=== PATIENT | female | born 1985 | race Caucasian/White ===

== ENCOUNTER 2023-12-03 21:00 | Inpatient (IN) | payer MEDICAID, SELFPAY ==
[2023-12-03 21:02] VITALS: BP 143/105; PULSE 104; RESP 17; TEMP 36.7; O2SAT 98; BMI 30.5
--- NOTE | 2023-12-03 21:32 | EX.ED.SAOD ---
HPI History of Present Illness Chief Complaint: Substance Abuse Detail of Chief Complaint: Fentanyl use for the past 1 to 2 months daily Informant: patient Onset/Context/Timing Onset: Month(s) Context: Sudden Onset Timing: Continuous Quality: Patient relapsed after being drug-free for 3 years Location: Injects multiple sites single Current Severity: Mild Maximum Severity: Moderate Worsened by: Abstinence Relieved by: Use Associated Symptoms Associated Symptoms: Positive for diarrhea*, tremor, palpatations and no; Negative for vomiting*, fever*, rash*, seizure, change in mental status, trauma, sex for drugs*, suicidal ideation or homicidal ideation Narrative Narrative: Patient is a 38-year-old woman. She had been using for over 8 years. Went to rehab. She stopped using for 3 years. Boyfriend cheated on her and did other things so she resumed using. She states she uses fentanyl. She injects in her extremities upper and lower as well as feet. She denies fever, chills night sweats. Denies history of SPE. She does have history of hepatitis C. She is HIV negative. She denies headache, visual, ocular auditory symptoms. She denies shortness of breath. Does complain of palpitations. She intermittently complains of abdominal pain she has had diarrhea for the past day. She denies vomiting. Prior similar symptoms: Yes Recent Illness/Hospitalization: No PFSH PFSH Medical History Hepatitis C Use of nonprescription opiate drugs Home Medications ?Medication ?Instructions ?Recorded ?Last Taken ?Type buprenorphine HCl 8 mg sublingual 8 mg sublingual Q12H 12/03/23 Unknown History tablet cyclobenzaprine 10 mg tablet 20 mg PO DAILY 12/03/23 Unknown History divalproex 500 mg tablet,delayed 1,000 mg PO DAILY 12/03/23 Unknown History release (Depakote) fluoxetine 40 mg capsule (Prozac) 60 mg PO DAILY 12/03/23 Unknown History gabapentin 300 mg capsule 600 mg PO Q6H 12/03/23 Unknown History Allergy/AdvReac Type Severity Reaction Status Date / Time No Known Allergies Allergy Verified 12/03/23 21:04 Social History (Updated 12/03/23 @ 21:[address] Tomas Lopez MD) household members: none Smoking Status: Current every day smoker tobacco type: e-cigarettes substance use type: opiates ROS ROS ED Constitutional Constitutional ED: Denies chills, fever(s), subjective or sweats Eyes Eyes: Denies blurry vision, change in vision or diplopia ENT ENT ED: Denies ear pain, rhinorrhea or sore throat Cardiovascular Cardiovascular: Denies chest pain, palpitations or racing heartbeat Respiratory/Chest Respiratory/Chest: Denies cough, dyspnea or dyspnea on exertion Gastrointestinal Gastrointestinal: Reports abdominal pain and diarrhea; Denies constipation, melena or vomiting Genitourinary Genitourinary ED: Denies dysuria or urinary frequency Musculoskeletal Musculoskeletal: Denies back pain or neck pain Integumentary Reports rash; Denies abscess or Abrasions Neurologic Neurologic: Denies headache(s) or paresthesias Endocrine Endocrinology: Denies cold intolerance or heat intolerance Hematologic/Lymphatic Hematologic/Lymphatic: Denies easy bleeding or easy bruising Allergic/Immunologic Allergic/Immunologic ED: Denies mouth swelling or tongue swelling EXAM Physical Exam Const Vital Signs: 12/03/23 21:02 12/03/23 22:02 12/03/23 22:11 Temperature 98.1 F 96.9 F L Temperature Source Temporal Pulse Rate 104 H 88 88 Respiratory Rate 17 18 16 Blood Pressure 143/105 H 126/103 H 126/103 H Blood Pressure Mean 117 110 110 Pulse Ox 98 96 92 Oxygen Delivery Method Room Air Room Air Positive well nourished, well developed and unkempt General Appearance ED: unkempt and well developed; Negative for pallor HEENT Reports moist mucous membranes HEENT Narrative: Nares patent. Posterior pharynx is normal. atraumatic; Negative for tenderness Eyes PERRL and EOMs intact bilaterally General Eye ED: Negative for pale conjunctiva or scleral icterus Neck no lymphadenopathy, supple and no JVD Lymph Lymphatic: no lymphadenopathy noted and lymphadenopathy Chest Wall inspection of chest normal and palpation of chest normal Resp normal respiratory effort and clear to auscultation bilaterally Cardio regular rhythm, S1 normal heart sound, S2 normal heart sound and no murmurs Rate: tachycardic GI soft to palpation, non-tender, non-distended and no masses Back/Spine no CVA tenderness Extremity Extremity Narrative: Track vaca upper and lower extremity without evidence infection. There is also bruising since she skin pops. Neuro oriented x3 and CN's II-XII intact bilaterally Joshua Coma Scale: document GCS findings Spontaneous Obeys Commands Oriented 15 Sensorium / Orientation: alert Psych Appearance: unkempt Mood & Affect: depressed Skin General Skin Exam: scars; Negative for jaundice or pallor MDM MDM MDM Narrative Medical decision making narrative: Nurses attempted to get blood. Will order appropriate test. Addiction order set for admission for opiate abuse. Lab Data Attestation: I reviewed the patient's lab results. Lab results narrative: Talk screen is positive for amphetamines, ecstasy, benzodiazepines and cocaine. Fentanyl does not show up as an opiate on talk screen. Labs: Laboratory Results - last 24 hr 12/03/23 21:36 Urine Opiates Screen NEGATIVE Urine Methadone Screen NEGATIVE Ur Barbiturates Screen NEGATIVE Ur Phencyclidine Scrn NEGATIVE Ur Amphetamines Screen POSITIVE H MDMA (Ecstasy) Screen POSITIVE H U Benzodiazepines Scrn POSITIVE H Urine Cocaine Screen POSITIVE H U Cannabinoids Screen NEGATIVE Ur Drug Screen Comment Management Discussion w/another healthcare provider: Hospitalist Discharge Plan Triage Chief Complaint: Substance Abuse ED Provider: Tomas Lopez Dx/Rx/DC Orders Clinical Impression: Opiate abuse, continuous, Opiate dependence, Ecstasy abuse, Cocaine use, Moderate benzodiazepine use disorder Prescriptions: No Action fluoxetine [Prozac] 40 mg capsule 60 mg PO DAILY divalproex [Depakote] 500 mg tablet,delayed release (DR/EC) 1,000 mg PO DAILY gabapentin 300 mg capsule 600 mg PO Q6H buprenorphine HCl 8 mg tablet, sublingual 8 mg sublingual Q12H cyclobenzaprine 10 mg tablet 20 mg PO DAILY Print Language: Lithuanian Disposition Disposition: Acute Care Hospital [facility]
[2023-12-03 21:53] LABS: Vista UDS pH Range 6
[2023-12-03 21:54] LABS: Amphetamine Urine VISTA POSITIVE (<1000 ng/mL); Barbiturate Urine VISTA NEGATIVE (< 200 ng/mL); Benzodiazepine Urine VISTA POSITIVE (< 200 ng/mL); Cocaine Urine VISTA POSITIVE (< 300 ng/mL); Ecstacy Urine VISTA POSITIVE (< 500 ng/mL); Methadone Urine VISTA NEGATIVE (< 300 ng/mL); PCP Urine VISTA NEGATIVE (< 25 ng/mL); THC Urine VISTA NEGATIVE (< 50 ng/mL)
[2023-12-03 22:02] VITALS: BP 126/103; PULSE 88; RESP 18; O2SAT 96
[2023-12-03 22:11] VITALS: BP 126/103; PULSE 88; RESP 16; TEMP 36.1; O2SAT 92
--- NOTE | 2023-12-03 22:21 | PCM.HP.STD ---
[facility] - General General Date of Admission: 12/03/23 Date of Service: 12/03/23 Chief Complaint: Wants Help with Fentanyl Detox. HPI Narrative ALEX NINO, is a 38 F with a past medical history of obesity; with BMI of 30.5 this admission, tobacco abuse, chronic ongoing Fentanyl abuse with IVDA and skin popping (since ~2015); still on SL Buprenex BID in spite of alleged ~3 years of sobriety due to recent relapse, Chronic Hepatitis C, history of seizures; on Divalproex and Gabapentin and depression who presents to [facility] ER complaining she wants help with Fentanyl detox. Ms. Nino reports her symptoms began 1-2 months ago after she found out her boyfriend was unfaithful to her with her best friend causing her to go on a binge of Fentanyl/Polysubstance abuse since that time literally throwing her life into a tailspin as she tries to rebuild her life without them. When asked to quantify how much she uses a day she just says a lot with her last use a few hours ago. She admits to loose stools and nausea but she denies associated fever, chills vomiting, recent travel, recent known sick contacts, recent antibiotics or other recent illness. She claims she is HIV negative. In the ER her UDS this admission was positive for Amphetamines, MDMA, Benzodiazepines and Cocaine indicative of Polysubstance Abuse and she was then diagnosed with acute Fentanyl/ Polysubstance withdrawal in the setting of chronic Fentanyl/Polysubstance abuse with IVDA complicated by uncontrolled depression attributed to her boyfriend's and best friends betrayal and she was then admitted to the general medical floor for ongoing care for a stay that is expected to extend beyond 2 midnights. [facility] Medical History Hepatitis C Use of nonprescription opiate drugs Home Medications ?Medication ?Instructions ?Recorded ?Last Taken ?Type buprenorphine HCl 8 mg sublingual 8 mg sublingual Q12H 12/03/23 Unknown History tablet cyclobenzaprine 10 mg tablet 20 mg PO DAILY 12/03/23 Unknown History divalproex 500 mg tablet,delayed 1,000 mg PO DAILY 12/03/23 Unknown History release (Depakote) fluoxetine 40 mg capsule (Prozac) 60 mg PO DAILY 12/03/23 Unknown History gabapentin 300 mg capsule 600 mg PO Q6H 12/03/23 Unknown History Allergy/AdvReac Type Severity Reaction Status Date / Time No Known Allergies Allergy Verified 12/03/23 21:04 Social History household members: none Smoking Status: Current every day smoker tobacco type: e-cigarettes substance use type: opiates ROS ROS Narrative Review of systems: General: Patient denies fever or chills. HENT: Denies headache, denies stuffy nose, denies sore throat EYES: Denies changes in vision or discharge from eyes. Resp: Denies cough, denies shortness of breath Cardiac: Denies chest pain, palpitations or heart racing. GI: Patient admits to abdominal pain and diarrhea but she denies nausea or vomiting. : Denies changes in urination Extremity: Denies swelling Musculoskeletal: Feels somewhat generally weak and unwell but she denies arthralgias or myalgias. Neuro: Patient denies headache, paresthesias or focal neurologic deficits. Heme: Denies any bleeding or bruising Skin: Patient has evidence of track vaca in both upper and lower extremities along with evidence of skin popping and very poor venous access. Psychiatric: Patient is tearful and anxious when speaking about her ex-boyfriend who cheated on her with her best friend causing this patient to struggle to control her already significant addiction issues. Endocrine: No polyuria, polydipsia or polyphagia. The rest of the 14 point ROS was negative except for positives in HPI. Vital Signs Vital Signs Vital Signs: 12/03/23 21:02 12/03/23 22:02 12/03/23 22:11 Temperature 98.1 F 96.9 F L Temperature Source Temporal Pulse Rate 104 H 88 88 Respiratory Rate 17 18 16 Blood Pressure 143/105 H 126/103 H 126/103 H Blood Pressure Mean 117 110 110 Pulse Ox 98 96 92 Oxygen Delivery Method Room Air Room Air Weight Weight: 219 lb Body Mass Index (BMI) 30.5 Physical Exam Const alert, oriented x3, average body habitus and healthy appearing Constitutional Narrative: Mild distress noted with patient disheveled and unkempt. General Appearance: cooperative HEENT normocephalic, head/scalp atraumatic, hearing grossly normal bilaterally and moist oral mucous membranes Eyes PERRL and EOMs intact bilaterally Neck no lymphadenopathy and supple Resp normal respiratory effort, no retractions, no use of accessory muscles and clear to auscultation bilaterally Cardio regular rate and regular rhythm GI normal to inspection, nondistended, normoactive bowel sounds, soft to palpation, non-tender and non-distended Extremity full ROM Extremity Narrative: Patient has track vaca in her upper and lower extremities along with evidence of skin popping with corresponding bruising without evidence of acute infection. Skin Skin Narrative: Patient has no evidence of jaundice or rash but she has track vaca in her upper and lower extremities along with evidence of skin popping with corresponding bruising without evidence of acute infection. Patient is also tattooed over her chest wall and both upper extremities. Neuro oriented x3, CN's II-XII intact bilaterally, moves all extremities and no focal motor deficits Sensorium / Orientation: awake, alert, oriented to person, oriented to place and oriented to time Speech: speech normal Psych Psych Narrative: Patient is tearful, anxious and depressed when asked about her ex-boyfriend and her best friend. She denies suicidal or homicidal ideation but she is still in the process of deeply grieving for the loss of both of these relationships. Mood & Affect: depressed and anxious Results Medical Records Data Attestation: I reviewed the patient's medical records Lab / Micro Data Attestation: I reviewed the patient's lab results. 12/03/23 22:03 Labs: Laboratory Results - last 24 hr 12/03/23 21:36: Urine Opiates Screen NEGATIVE, Urine Methadone Screen NEGATIVE, Ur Barbiturates Screen NEGATIVE, Ur Phencyclidine Scrn NEGATIVE, Ur Amphetamines Screen POSITIVE H, MDMA (Ecstasy) Screen POSITIVE H, U Benzodiazepines Scrn POSITIVE H, Urine Cocaine Screen POSITIVE H, U Cannabinoids Screen NEGATIVE, Ur Drug Screen Comment Assessment & Plan Assessment/Plan (1) Polysubstance abuse: (2) Opiate dependence: QUALIFIERS: Substance use status: in withdrawal Qualified Code(s): F11.23 - Opioid dependence with withdrawal (3) Opiate abuse, continuous: (4) Ecstasy abuse: (5) Cocaine use: (6) Moderate benzodiazepine use disorder: (7) Hepatitis C: QUALIFIERS: Hepatic coma status: without hepatic coma Viral hepatitis chronicity: unspecified Qualified Code(s): B19.20 - Unspecified viral hepatitis C without hepatic coma (8) Depression with anxiety: (9) Hypokalemia: PLAN: Plan 1. Acute Fentanyl/Polysubstance withdrawal in the setting of chronic Fentanyl/Polysubstance Abuse with IVDA and skin popping since ~2016 with her UDS this admission was positive for Amphetamines, MDMA, Benzodiazepines and Cocaine - Admit to general medical floor for medical stabilization under the opiate detoxification protocol. Opiate cessation was strongly encouraged. Loose stools are typical of opiate withdrawal but we will check stool studies to be sure. Finally, we will consult Case Management and addiction counselor to see this patient on-rounds in the AM for further recommendations regarding helping this patient formulate and execute a plan to regain her sobriety with help appreciated in advance. 2. Uncontrolled Depression with anxiety for the past ~1-2 months triggered by her boyfriend's infidelities complicating #1 - Resume Prozac and give prn oral Vistaril for breakthrough symptoms. Check TSH. 3. Tobacco abuse compounding #1 & #2 - Tobacco cessation will be strongly encouraged with Nicotine patch offered to control cravings. 4. Hypokalemia of 3.3 mmol/L present on admission adding to the complexity of #1 - #3 - Give supplemental KCl and then recheck level in a.m. to ensure improvement. 5. Chronic Hepatitis C adding - Noted. Patient not jaundiced or showing any signs of acute liver decompensation. 6. Obesity; with BMI of 30.5 this admission - Weight loss will be recommended. 7. History of seizures; on Divalproex and Gabapentin - Continue home regimen as previous. Give IV Ativan prn for breakthrough seizure activity. 8. DVT prophylaxis - Lovenox 40 mg sq daily. Total time: Approximately 75 minutes. Charges/Coding Visit Charges Inpatient E&M: 06092 Init Hosp L3
[2023-12-03 22:24] LABS: Alcohol, Blood (Medical)-Serum < 3.0 mg/dL
[2023-12-03 22:30] LABS: ALB/GLOB Ratio 1.1 RATIO (0.9-2.4); AST(SGOT) 13 U/L (15-37); Alanine Aminotransfer ALT/SGPT 24 U/L (13-56); Albumin, Serum 3.6 g/dL (3.2-5.0); Alkaline Phosphatase 78 U/L (45-117); Anion Gap 7 (5-15); BUN 13 mg/dL (7-18); BUN/Creat Ratio 10.7 RATIO (10-20); Calcium,Total 8.8 mg/dL (8.5-10.1); Chloride 106 mmol/L (98-107); Creatinine, Serum 1.21 mg/dL (0.55-1.02); EST Glomerular Filtration Rate 52 mL/min (>60); Est Glom Filt Rate - Afr Amer 63 mL/min (>60); Estimated Creatinine Clearance 80.21 ml/min; Globulin 3.4 g/dL (2.2-4.2); Glucose 126 mg/dL (74-106); Potassium 3.3 mmol/L (3.5-5.1); Sodium Level 139 mmol/L (136-145)
[2023-12-03 23:17] VITALS: BMI 30.7
[2023-12-03 23:36] VITALS: BP 133/94; PULSE 77; RESP 16; TEMP 36.4; O2SAT 98
[2023-12-03 23:39] LABS: Valproic Acid (Depakene) Level < 3 ug/mL (50-100)
[2023-12-03] MEDS: Potassium Chloride Oral Tablet 20 MEQ 60 MEQ PO (23:46)
[2023-12-04] VITALS (8 sets, daily range): BP systolic 101–108; BP diastolic 71–81; PULSE 64–83; RESP 10–16; TEMP 36.2–36.7; O2SAT 85–99; BMI 30.8
[2023-12-04] MEDS: Gabapentin 600 MG Tablet PO ×3 (00:04→12:27)
[2023-12-04] MEDS: Acetaminophen 325 MG Tablet 650 MG PO ×3 (00:17→16:43)
[2023-12-04] MEDS: traZODone 100 MG Tablet PO (00:18)
[2023-12-04] MEDS: KCL 20MEQ in 0.9% NS 20 MEQ/1,000 ML IV.SOLN. 125 MEQ IV ×2 (01:08→07:50)
[2023-12-04] MEDS: Ondansetron 8 MG Tablet PO (06:39)
[2023-12-04] MEDS: 0.9% Saline Lock 10 ML Syringe IV (06:39)
[2023-12-04 07:06] LABS: Absolute Lymphocyte Count 3.09 X10^3/uL (0.83-4.51); Absolute Neutrophil Count 2.4 X10^3/uL (2.0-7.7); Basophil# 0.04 X10^3/uL; Basophil% 0.7 % (0-1); Eosinophil# 0.14 X10^3/uL; Eosinophils% 2.3 % (0-5); Hematocrit 35.1 % (37-47); Hemoglobin 10.7 g/dL (12.0-15.0); Lymphocyte # 3.09 X10^3/ul (0.83-4.51); Lymphocyte % 50.7 % (19-41); Mean Corp Hgb Conc 30.5 g/dL (32-36); Mean Corpuscular Hgb 26.1 pg (27.0-32.0); Mean Corpuscular Volume 85.6 fL (81-99); Monocyte# 0.42 X10^3/uL; Monocyte% 6.9 % (0-10); NRBC Flagged by Analyzer 0 % (0-5); Neutrophil % 39.2 % (47-70); Platelet Count 267 K/mm3 (150-450); RBC Distribution Width CV 14.9 % (11.6-14.6); RBC Distribution Width SD 46.9 fl (35.1-43.9); White Blood Count 6.1 K/mm3 (4.4-11.0)
[2023-12-04] MEDS: FLUoxetine 20 MG Capsule 60 MG PO (07:58)
[2023-12-04] MEDS: Enoxaparin 40 MG/0.4 ML Syringe SC (07:58)
[2023-12-04] MEDS: Divalproex Sodium 250 MG Tablet 1000 MG PO (07:58)
[2023-12-04 08:28] LABS: AST(SGOT) 21 U/L (15-37); Alanine Aminotransfer ALT/SGPT 22 U/L (13-56); Albumin, Serum 3.1 g/dL (3.2-5.0); Alkaline Phosphatase 73 U/L (45-117); Anion Gap 8 (5-15); BUN 12 mg/dL (7-18); BUN/Creat Ratio 12.3 RATIO (10-20); Calcium,Total 8.7 mg/dL (8.5-10.1); Chloride 111 mmol/L (98-107); Creatinine, Serum 0.98 mg/dL (0.55-1.02); EST Glomerular Filtration Rate 67 mL/min (>60); Est Glom Filt Rate - Afr Amer 81 mL/min (>60); Estimated Creatinine Clearance 99.26 ml/min; Globulin 3.2 g/dL (2.2-4.2); Glucose 119 mg/dL (74-106); Magnesium 1.9 mg/dL (1.6-2.6); Phosphorus 3.1 mg/dL (2.5-4.9); Potassium 4.3 mmol/L (3.5-5.1); Protein, Total 6.3 g/dL (6.4-8.2); Sodium Level 141 mmol/L (136-145); Thyroid Stim Hormone (TSH) 8.19 uIU/mL (0.358-3.74)
--- NOTE | 2023-12-04 10:15 | PCM.PN.HOSP ---
Subjective Subjective COWS score of 3 this morning Objective Data Objective Data Vital Signs: Vital Signs Temp Pulse Resp BP Pulse Ox O2 Del Method 98.0 F 70 16 101/78 93 Room Air 12/04/23 07:42 12/04/23 07:42 12/04/23 07:42 12/04/23 07:42 12/04/23 07:42 12/04/23 07:42 Oxygen Delivery Method Room Air Weight: 219 lb 15.988 oz Body Mass Index (BMI) 30.8 Intake & Output: Intake and Output for Last 24 Hours 12/03/23 12/04/23 12/05/23 03:59 03:59 03:59 Intake Total 1137.5 / 1137.5 Balance 1137.5 / 1137.5 Lab / Micro Data 12/04/23 06:40 12/04/23 06:40 Labs: Laboratory Results - last 24 hr 12/03/23 21:36: Urine Opiates Screen NEGATIVE, Urine Methadone Screen NEGATIVE, Ur Barbiturates Screen NEGATIVE, Ur Phencyclidine Scrn NEGATIVE, Ur Amphetamines Screen POSITIVE H, MDMA (Ecstasy) Screen POSITIVE H, U Benzodiazepines Scrn POSITIVE H, Urine Cocaine Screen POSITIVE H, U Cannabinoids Screen NEGATIVE, Ur Drug Screen Comment 12/03/23 22:03: Sodium 139, Potassium 3.3 L, Chloride 106, Carbon Dioxide 26.0, Anion Gap 7, BUN 13, Creatinine 1.21 H, Estim Creat Clear Calc 80.21, Est GFR (MDRD) Af Amer 63, Est GFR (MDRD) Non-Af 52 L, BUN/Creatinine Ratio 10.7, Glucose 126 H, Calcium 8.8, Total Bilirubin 0.30, AST 13 L, ALT 24, Alkaline Phosphatase 78, Total Protein 7.0, Albumin 3.6, Globulin 3.4, Albumin/Globulin Ratio 1.1, Valproic Acid < 3 L, Ethyl Alcohol < 3.0 12/04/23 06:40: WBC 6.1, RBC 4.10 L, Hgb 10.7 L, Hct 35.1 L, MCV 85.6, MCH 26.1 L, MCHC 30.5 L, RDW Std Deviation 46.9 H, RDW Coeff of Consuelo 14.9 H, Plt Count 267, MPV 11.0, Immature Gran % (Auto) 0.200, Neut % (Auto) 39.2 L, Lymph % (Auto) 50.7 H, [place] % (Auto) 6.9, Eos % (Auto) 2.3, Baso % (Auto) 0.7, Absolute Neuts (auto) 2.4, Absolute Lymphs (auto) 3.09, Nucleated RBC % 0, Sodium 141, Potassium 4.3, Chloride 111 H, Carbon Dioxide 22.0, Anion Gap 8, BUN 12, Creatinine 0.98, Estim Creat Clear Calc 99.26, Est GFR (MDRD) Af Amer 81, Est GFR (MDRD) Non-Af 67, BUN/Creatinine Ratio 12.3, Glucose 119 H, Calcium 8.7, Phosphorus 3.1, Magnesium 1.9, Total Bilirubin 0.30, AST 21, ALT 22, Alkaline Phosphatase 73, Total Protein 6.3 L, Albumin 3.1 L, Globulin 3.2, Albumin/Globulin Ratio 1.0, TSH 8.19 H Physical Exam Narrative General: Alert, Oriented x3, Cooperative, No apparent distress HEENT: Atraumatic, PERRLA, EOMI, Normocephalic Oral: Moist Mucosa Neck: Supple, No JVD Lungs: Clear to auscultation, Normal air movement, No rhonchi, No wheeze, No rales Cardiovascular: Regular rate, Regular Rhythm, Normal S1, Normal S2, No murmurs Abdomen: Soft, Non Tender, Non-Distended, No Hepato-splenomegaly Extremities: No edema, Capillary Refill Less than 3 Seconds Skin: Track vaca with no signs of infection Musculoskeletal: No Tenderness to Palpation of Joints or Extremities Neurological: No focal neurological deficits, Motor Exam 5/5 strength throughout, Sensory exam intact to light touch and pain Psych/Mental Status: Anxious Assessment & Plan Assessment/Plan (1) Polysubstance abuse: (2) Opiate dependence: QUALIFIERS: Substance use status: in withdrawal Qualified Code(s): F11.23 - Opioid dependence with withdrawal (3) Opiate abuse, continuous: PLAN: Plan 1. Acute opiate withdrawal/polysubstance abuse/anxiety/depression/chronic hepatitis C/tobacco abuse ? She had been clean for 3 years and then her boyfriend cheated on her with her best friend ? Requesting help with detox ? Continue with the opiate withdrawal protocol ? Will have her follow-up with 180 to establish discharge planning ? Continue with her home mental health medications ? Continue with the nicotine patch 2. Seizure disorder ? Stable ? Continue with her home Depakote DVT: Ambulation Charges/Coding Visit Charges Inpatient E&M: 72242 Subs Hosp L2
--- NOTE | 2023-12-04 14:53 | NUR.TO.PHY ---
Dr Martinez notified of o2 saturation 85% on RA. Current O2 sat 95% on 2L NC. Response was OK.
--- NOTE | 2023-12-04 16:17 | CPS ---
told by Dr. Hewitt to place patient on cpap due to CO2 of 51. Went to patient room to place the cpap on her and she is wide awake eating her dinner. Cpap is ready in standby mode in the room.Settings are a cpap of 7 and fio2 of 24%. Nursing aware
[2023-12-04 16:22] LABS: Allen Test Positive; Base Excess -1 mmol/L (-2 to +2); Bicarbonate 25.3 mmol/L (22-26); Blood Gas Specimen Type ART; Mode Not entered; O2 Delivery Device Cannula; PO2 97 mmHG (75-100); SITE R Radial; SO2 97 % (95-99); Total Carbon Dioxide 27 mmol/L; pCO2 51.5 mmHg (35-45)
[2023-12-04] MEDS: Methocarbamol 750 MG Tablet PO (16:43)
[2023-12-04] MEDS: hydrOXYzine PAM 25 MG Capsule 50 MG PO (16:43)
[2023-12-05 02:00] VITALS: BP 118/76; PULSE 89; RESP 16; TEMP 36.7; O2SAT 96
[2023-12-05] MEDS: Gabapentin 600 MG Tablet PO (05:47)
[2023-12-05 08:22] VITALS: BP 100/72; PULSE 79; RESP 14; TEMP 36.7; O2SAT 95
[2023-12-05] MEDS: FLUoxetine 20 MG Capsule 60 MG PO (08:28)
[2023-12-05] MEDS: Divalproex Sodium 250 MG Tablet 1000 MG PO (08:28)
--- NOTE | 2023-12-05 09:40 | PCM.PN.HOSP ---
Subjective Subjective No issues overnight, Cina score of 0 Objective Data Objective Data Vital Signs: Vital Signs Temp Pulse Resp BP Pulse Ox O2 Del Method O2 Flow Rate 98.1 F 79 14 100/72 95 Room Air 2 12/05/23 08:22 12/05/23 08:22 12/05/23 08:22 12/05/23 08:22 12/05/23 08:22 12/05/23 08:22 12/04/23 14:42 FiO2 21 12/04/23 19:55 Oxygen Flow Rate (L/min) 2 Oxygen Delivery Method Room Air Weight: 219 lb 15.988 oz Body Mass Index (BMI) 30.8 Intake & Output: Intake and Output for Last 24 Hours 12/04/23 12/05/23 12/06/23 03:59 03:59 03:59 Intake Total 2277.08 / 2277.08 150 / 150 Balance 2277.08 / 2277.08 150 / 150 Lab / Micro Data 12/04/23 06:40 12/04/23 06:40 ABG Data ABG results: ABG 12/04/23 16:17 Specimen Type ART Sample Site R Radial pH 7.30 L Bicarbonate Actual 25.3 Total CO2 27 Base Excess -1 O2 Saturation 97 O2 % 2.0 ABG pCO2 51.5 H ABG pO2 97 Johnny Test Positive O2 Delivery Device Cannula Vent Mode Not entered Physical Exam Narrative General: Resting comfortably, Oriented x3, Cooperative, No apparent distress HEENT: Atraumatic, PERRLA, EOMI, Normocephalic Oral: Moist Mucosa Neck: Supple, No JVD Lungs: Clear to auscultation, Normal air movement, No rhonchi, No wheeze, No rales Cardiovascular: Regular rate, Regular Rhythm, Normal S1, Normal S2, No murmurs Abdomen: Soft, Non Tender, Non-Distended, No Hepato-splenomegaly Extremities: No edema, Capillary Refill Less than 3 Seconds Skin: Track vaca with no signs of infection Musculoskeletal: No Tenderness to Palpation of Joints or Extremities Neurological: No focal neurological deficits, Motor Exam 5/5 strength throughout, Sensory exam intact to light touch and pain Psych/Mental Status: Anxious Assessment & Plan Assessment/Plan (1) Polysubstance abuse: (2) Opiate dependence: QUALIFIERS: Substance use status: in withdrawal Qualified Code(s): F11.23 - Opioid dependence with withdrawal (3) Opiate abuse, continuous: PLAN: Plan 1. Acute opiate withdrawal/polysubstance abuse/anxiety/depression/chronic hepatitis C/tobacco abuse ? She had been clean for 3 years and then her boyfriend cheated on her with her best friend ? Requesting help with detox ? Continue with the opiate withdrawal protocol ? Will have her follow-up with 180 to establish discharge planning ? Continue with her home mental health medications ? Continue with the nicotine patch 2. Seizure disorder ? Stable ? Continue with her home Depakote 3. Should be placed on oxygen yesterday and I observed her breathing while sleeping ABG demonstrates respiratory acidosis she likely has a component of sleep apnea. She wore CPAP overnight and did well. This will need to be followed up on as an outpatient DVT: Ambulation Charges/Coding Visit Charges Inpatient E&M: 20910 Subs Hosp L2
[2023-12-05 10:44] VITALS: O2SAT 95
[2023-12-05] MEDS: Gabapentin 400 MG Capsule PO ×2 (11:47→17:47)
--- NOTE | 2023-12-05 12:42 | ADDICTION ---
Pt was met with for [facility] assessment and to complete AUDIT, DUPERCYT, ASAM, [place], and DC Plan. Pt admits she is not interested in a residential or inpatient tx center and she plans to follow up with her current doctor in [place]. Pt states she is receiving mental health and MAT services w/Rx daily Buprenorphine from Dr. Whitehead and she plans to follow through with her OP appt. this week. Pt states she plans to discharge to her parents home in [place] and her parents will transport her home [facility].
[2023-12-05] MEDS: Acetaminophen 325 MG Tablet 650 MG PO (17:50)
[2023-12-05 21:00] VITALS: BP 119/89; PULSE 77; RESP 16; TEMP 36.7; O2SAT 94
[2023-12-06 03:00] VITALS: BP 127/92; PULSE 74; RESP 16; TEMP 36.7; O2SAT 95
[2023-12-06] MEDS: Gabapentin 400 MG Capsule PO ×3 (05:12→17:27)
[2023-12-06 06:00] VITALS: BMI 31.2
[2023-12-06 09:05] VITALS: BP 124/86; PULSE 85; RESP 16; TEMP 36.9; O2SAT 97
[2023-12-06] MEDS: Ondansetron 8 MG Tablet PO (09:14)
[2023-12-06] MEDS: FLUoxetine 20 MG Capsule 60 MG PO (09:15)
[2023-12-06] MEDS: Divalproex Sodium 250 MG Tablet 1000 MG PO (09:15)
[2023-12-06] MEDS: Dicyclomine 10 MG Capsule 20 MG PO ×2 (09:15→17:27)
[2023-12-06] MEDS: Buprenorphine HCl 2 MG TAB.SUBL SL ×2 (11:16→22:02)
[2023-12-06] MEDS: Methocarbamol 750 MG Tablet PO ×2 (11:16→17:27)
--- NOTE | 2023-12-06 12:37 | PN.HOSP_ITS ---
Reason for Visit Reason for Visit: Diagnoses Unspecified viral hepatitis C without hepatic coma (12/03/23) Hypokalemia (12/03/23) Opioid abuse, uncomplicated (12/03/23) Opioid dependence with withdrawal (12/03/23) Sedative, hypnotic or anxiolytic dependence, uncomplicated (12/03/23) Cocaine use, unspecified, uncomplicated (12/03/23) Hallucinogen abuse, uncomplicated (12/03/23) Other psychoactive substance abuse, uncomplicated (12/03/23) Other specified anxiety disorders (12/03/23) Subjective Subjective Saw patient at bedside this morning. Patient was laying comfortably in bed, in no acute distress. She reported feeling like crap this morning, similar to previous days. She felt tired and fatigued and like she was continue to have opiate withdrawal symptoms. She notably had not triggered the opiate withdrawal scoring to this point and not received any as needed doses of Subutex. She otherwise denied any acute concerns. Objective Data Objective Data Vital Signs: Vital Signs Temp Pulse Resp BP Pulse Ox O2 Del Method O2 Flow Rate 98.4 F 85 16 124/86 H 97 Nasal Cannula 2 12/06/23 09:05 12/06/23 09:05 12/06/23 09:05 12/06/23 09:05 12/06/23 09:05 12/06/23 09:05 12/04/23 14:42 FiO2 21 12/04/23 19:55 Oxygen Flow Rate (L/min) 2 Oxygen Delivery Method Nasal Cannula Weight: 101.2 kg Body Mass Index (BMI) 31.2 Intake & Output: Intake and Output for Last 24 Hours 12/04/23 12/05/23 12/06/23 23:59 23:59 23:59 Intake Total 2076.7. 720 / 970 450 / 450 Balance 2076.7.08 720 / 970 450 / 450 Lab / Micro Data 12/04/23 06:40 12/04/23 06:40 Physical Exam Const alert, oriented x3 and no apparent distress Constitutional Narrative: Middle-age female, obese, fatigued appearing, otherwise laying comfortably in bed, conversing normally, in no acute distress. General Appearance: cooperative and comfortable HEENT normocephalic, head/scalp atraumatic, hearing grossly normal bilaterally, nasal mucous membranes and turbinates normal and moist oral mucous membranes Eyes PERRL, EOMs intact bilaterally and conjunctivae normal Neck full ROM Chest inspection of chest normal Resp normal respiratory effort, normal air movement, no use of accessory muscles and clear to auscultation bilaterally Cardio regular rate, regular rhythm, no murmurs and peripheral pulses 2+ throughout GI normal to inspection, nondistended, normoactive bowel sounds, soft to palpation, non-tender and non-distended Back/Spine normal ROM Extremity normal to inspection, full ROM and no pedal edema Skin no rashes or lesions noted Neuro moves all extremities and no focal motor deficits Speech: speech normal Psych mental status grossly normal Assessment & Plan Assessment/Plan (1) Polysubstance abuse: (2) Opiate abuse, continuous: (3) Desire for detoxification: PLAN: Plan Patient is a 38-year-old female who presented [facility] ED on 12/03/2023 for opiate detoxification. 1. Opiate abuse with desire for detoxification, polysubstance abuse ? Per patient, history of IV drug abuse and skin popping but had been clean for 3 years, and then unfortunately her boyfriend cheated on her causing her to relapse. UDS on admit positive for amphetamines, cocaine, benzodiazepines and MDMA. Treating with as needed medications per opiate withdrawal order set since admit. Notably patient has not triggered withdrawal scoring but continues to report symptoms so will schedule Subutex twice daily for now. Addiction medicine following. Planning for outpatient follow-up with addiction medicine near her home in [place] on discharge. Anticipate patient discharge home tomorrow. 2. Anxiety/depression/chronic pain ? Stable. Continue home Prozac, gabapentin and cyclobenzaprine. 3. Seizure disorder ? Continue home Depakote. 4. Obesity with suspected LACIE ? BMI 31 on admit. Recommended lifestyle modifications. Patient had nocturnal hypoxia noted with sleeping ABG demonstrating respiratory acidosis very likely secondary to untreated sleep apnea. Has worn CPAP overnight during hospitalization and has done well. Recommend outpatient sleep study shortly after discharge. 5. Mild normocytic anemia ? Hemoglobin 10.7 on admit, baseline unclear. Repeat CBC ordered. Iron studies with ferritin, B12 and folate also ordered. 6. Tobacco abuse ? Nicotine patch ordered per patient request. Encouraged cessation on discharge. DVT prophylaxis: Low risk, ambulate CODE STATUS: Full code, verified Expected disposition: Home, 1 to 2 days Total clinical time spent by myself addressing the patient's medical issues, reviewing all the data, and collaborating with patient's care team: 25 minutes. Charges/Coding Visit Charges Inpatient E&M: 92953 Subs Hosp L1
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
--- NOTE | 2023-12-06 13:23 | ADDICTION ---
clinician met with client to discuss tx goals post discharge. [facility] client was able to recognize sober support and wanting to be better. client was cooperative, however, tired.
[2023-12-06 14:44] VITALS: BP 123/86; PULSE 85; RESP 16; TEMP 37.1; O2SAT 100
[2023-12-06 20:24] VITALS: BP 123/83; PULSE 82; RESP 15; TEMP 36.6; O2SAT 97
[2023-12-06] MEDS: hydrOXYzine PAM 25 MG Capsule 50 MG PO (20:35)
[2023-12-06] MEDS: Acetaminophen 325 MG Tablet 650 MG PO (20:35)
[2023-12-06 21:40] VITALS: BMI 31.3
[2023-12-07 02:00] VITALS: PULSE 83; RESP 15; O2SAT 97
[2023-12-07 03:23] VITALS: BP 125/85; PULSE 82; RESP 15; TEMP 37.2; O2SAT 95
[2023-12-07] MEDS: Gabapentin 400 MG Capsule PO ×4 (06:00→23:09)
[2023-12-07 08:00] VITALS: BP 130/84; PULSE 90; RESP 12; TEMP 36.7; O2SAT 99
[2023-12-07] MEDS: Ondansetron 8 MG Tablet PO (08:23)
[2023-12-07] MEDS: Buprenorphine HCl 2 MG TAB.SUBL SL (08:23)
[2023-12-07] MEDS: Divalproex Sodium 250 MG Tablet 1000 MG PO (08:23)
[2023-12-07] MEDS: FLUoxetine 20 MG Capsule 60 MG PO (08:24)
--- NOTE | 2023-12-07 11:51 | PCM.PN.HOSP ---
Reason for Visit Reason for Visit: Diagnoses Unspecified viral hepatitis C without hepatic coma (12/03/23) Hypokalemia (12/03/23) Opioid abuse, uncomplicated (12/03/23) Opioid dependence with withdrawal (12/03/23) Sedative, hypnotic or anxiolytic dependence, uncomplicated (12/03/23) Cocaine use, unspecified, uncomplicated (12/03/23) Hallucinogen abuse, uncomplicated (12/03/23) Other psychoactive substance abuse, uncomplicated (12/03/23) Other specified anxiety disorders (12/03/23) Subjective Subjective No acute events overnight. Saw patient at bedside this morning. Patient was still stating this morning that she was feeling crappy and like she was having mild withdrawal symptoms. She had taken the Subutex yesterday but did not feel like this was fully controlling her symptoms. She has an appointment with her addiction medicine doctor tomorrow afternoon and would like to remain in the hospital through tomorrow morning for improved control of her symptoms. Denies any other acute concerns today. Objective Data Objective Data Vital Signs: Vital Signs Temp Pulse Resp BP Pulse Ox O2 Del Method O2 Flow Rate 98.1 F 90 12 130/84 H 99 Room Air 2 12/07/23 08:00 12/07/23 08:00 12/07/23 08:00 12/07/23 08:00 12/07/23 08:00 12/07/23 08:00 12/04/23 14:42 FiO2 21 12/04/23 19:55 Oxygen Flow Rate (L/min) 2 Oxygen Delivery Method Room Air Weight: 101.4 kg Body Mass Index (BMI) 31.3 Intake & Output: Intake and Output for Last 24 Hours 12/05/23 12/06/23 12/07/23 23:59 23:59 23:59 Intake Total 720 / 970 450 / 450 Balance 720 / 970 450 / 450 Lab / Micro Data 12/04/23 06:40 12/04/23 06:40 Physical Exam Const alert, oriented x3 and no apparent distress Constitutional Narrative: Middle-age female, obese, fatigued appearing, otherwise laying comfortably in bed, conversing normally, in no acute distress. General Appearance: cooperative and comfortable HEENT normocephalic, head/scalp atraumatic, hearing grossly normal bilaterally, nasal mucous membranes and turbinates normal and moist oral mucous membranes Eyes PERRL, EOMs intact bilaterally and conjunctivae normal Neck full ROM Chest inspection of chest normal Resp normal respiratory effort, normal air movement, no use of accessory muscles and clear to auscultation bilaterally Cardio regular rate, regular rhythm, no murmurs and peripheral pulses 2+ throughout GI normal to inspection, nondistended, normoactive bowel sounds, soft to palpation, non-tender and non-distended Back/Spine normal ROM Extremity normal to inspection, full ROM and no pedal edema Skin no rashes or lesions noted Neuro moves all extremities and no focal motor deficits Speech: speech normal Psych mental status grossly normal Assessment & Plan Assessment/Plan (1) Polysubstance abuse: (2) Opiate abuse, continuous: (3) Desire for detoxification: PLAN: Plan Patient is a 38-year-old female who presented [facility] ED on 12/03/2023 for opiate detoxification. 1. Opiate abuse with desire for detoxification, polysubstance abuse ? Per patient, history of IV drug abuse and skin popping but had been clean for 3 years, and then unfortunately her boyfriend cheated on her causing her to relapse. UDS on admit positive for amphetamines, cocaine, benzodiazepines and MDMA. Treating with as needed medications per opiate withdrawal order set since admit. Notably patient has not triggered withdrawal scoring but continues to report symptoms. Started to Subutex 2 mg twice daily on 12/05 with only mild improvement in symptoms, will increase to 4 mg 3 times daily today. Addiction medicine following. Has outpatient appointment scheduled with her addiction medicine doctor in [place] tomorrow afternoon, will plan for tomorrow morning discharge. 2. Anxiety/depression/chronic pain ? Stable. Continue home Prozac, gabapentin and cyclobenzaprine. 3. Seizure disorder ? Continue home Depakote. 4. Obesity with suspected LACIE ? BMI 31 on admit. Recommended lifestyle modifications. Patient had nocturnal hypoxia noted with sleeping ABG demonstrating respiratory acidosis very likely secondary to untreated sleep apnea. Has worn CPAP overnight during hospitalization and has done well. Recommend outpatient sleep study shortly after discharge. 5. Tobacco abuse ? Nicotine patch ordered per patient request. Encouraged cessation on discharge. DVT prophylaxis: Low risk, ambulate CODE STATUS: Full code, verified Expected disposition: Home, 1 to 2 days Total clinical time spent by myself addressing the patient's medical issues, reviewing all the data, and collaborating with patient's care team: 25 minutes. Charges/Coding Visit Charges Inpatient E&M: 86510 Subs Hosp L1
[2023-12-07] MEDS: Methocarbamol 750 MG Tablet PO ×2 (13:54→23:09)
[2023-12-07] MEDS: Acetaminophen 325 MG Tablet 650 MG PO (13:54)
[2023-12-07] MEDS: Buprenorphine HCl 2 MG TAB.SUBL 4 MG SL ×2 (13:54→23:09)
[2023-12-07 14:00] VITALS: BP 135/95; PULSE 93; RESP 12; TEMP 36.4; O2SAT 97
--- NOTE | 2023-12-07 14:19 | NURSING ---
this nurse spoke w/pts mom, darren. she is aware pt is being kept another night to help manage her symptoms and will be dc'd tomorrow am so she can make her appointment w/her detox
[2023-12-07 23:04] VITALS: BP 119/88; PULSE 85; RESP 14; TEMP 36.4; O2SAT 100
[2023-12-08 05:45] VITALS: BP 125/90; PULSE 83; RESP 14; TEMP 36.4; O2SAT 97
[2023-12-08] MEDS: Gabapentin 400 MG Capsule PO ×2 (05:47→11:21)
[2023-12-08] MEDS: Acetaminophen 325 MG Tablet 650 MG PO (05:47)
[2023-12-08] MEDS: Buprenorphine HCl 2 MG TAB.SUBL 4 MG SL (05:47)
[2023-12-08 06:00] VITALS: BMI 31.3
[2023-12-08 08:00] VITALS: BP 129/90; PULSE 79; RESP 12; TEMP 36.8; O2SAT 99
[2023-12-08] MEDS: Divalproex Sodium 250 MG Tablet 1000 MG PO (08:33)
[2023-12-08] MEDS: FLUoxetine 20 MG Capsule 60 MG PO (08:33)
--- NOTE | 2023-12-08 10:24 | DS.PCM_ITS ---
Providers Date of Admission: 12/03/23 Date of Discharge: 12/08/23 Primary Care Physician: No Primary Care Phys Reason For Visit: ACUTE OPIATE WITHDRAWAL AND UNCONTROLLED Diagnosis Discharge Diagnosis (1) Polysubstance abuse: Status: Acute Code(s): F19.10 - Other psychoactive substance abuse, uncomplicated (2) Opiate abuse, continuous: Status: Acute Code(s): F11.10 - Opioid abuse, uncomplicated (3) Desire for detoxification: Status: Acute Medications at Discharge Home Medications buprenorphine HCl 8 mg sublingual tablet 8 mg sublingual Q12H 12/03/23 cyclobenzaprine 10 mg tablet 20 mg PO DAILY 12/03/23 divalproex 500 mg tablet,delayed release (Depakote) 1,000 mg PO DAILY 12/03/23 fluoxetine 40 mg capsule (Prozac) 60 mg PO DAILY 12/03/23 gabapentin 300 mg capsule 600 mg PO Q6H 12/03/23 Hospital Course Operations None Procedures None Summary of Care Provided Minutes Spent on Discharge: 25 Hospital Course: Patient is a 38-year-old female who presented [facility] ED on 12/03/2023 for opiate detoxification. Hospital course as noted below. Patient discharged home in stable condition on 12/07. 1. Opiate abuse with desire for detoxification, polysubstance abuse ? Per patient, history of IV drug abuse and skin popping but had been clean for 3 years, and then unfortunately her boyfriend cheated on her causing her to relapse. UDS on admit positive for amphetamines, cocaine, benzodiazepines and MDMA. ? Treated during hospitalization with as needed medications per opiate withdrawal order set. She initially was treated with only as needed buprenorphine but had continued significant withdrawal symptoms, so scheduled buprenorphine was started with mild to moderate improvement in symptoms. Notably, patient discharged was delayed due to reported ongoing opiate withdrawal symptoms and continued need for adjustment of buprenorphine dosing. ? Addiction medicine followed. Patient had outpatient appointment scheduled with her addiction medicine doctor in [place] on afternoon of 12/07, discharged from hospital on morning of 12/07 in stable condition. 2. Anxiety/depression/chronic pain ? Stable. Continue home Prozac, gabapentin and cyclobenzaprine. 3. Seizure disorder ? Continue home Depakote. 4. Obesity with suspected LACIE ? BMI 31 on admit. Recommended lifestyle modifications. Patient had nocturnal hypoxia noted with sleeping ABG demonstrating respiratory acidosis very likely secondary to untreated sleep apnea. Wore CPAP overnight during hospitalization and did well. Recommend outpatient sleep study shortly after discharge. 5. Tobacco abuse ? Nicotine patch provided while inpatient per patient request. Encouraged cessation on discharge. Total clinical time spent by myself addressing the patient's medical issues, reviewing all the data, and collaborating with patient's care team: 25 minutes. Physical Exam Const alert, oriented x3 and no apparent distress Constitutional Narrative: Middle-age female, obese, fatigued appearing, otherwise laying comfortably in bed, conversing normally, in no acute distress. Stable. General Appearance: cooperative and comfortable HEENT normocephalic, head/scalp atraumatic, hearing grossly normal bilaterally, nasal mucous membranes and turbinates normal and moist oral mucous membranes Eyes PERRL, EOMs intact bilaterally and conjunctivae normal Neck full ROM Chest inspection of chest normal Resp normal respiratory effort, normal air movement, no use of accessory muscles and clear to auscultation bilaterally Cardio regular rate, regular rhythm, no murmurs and peripheral pulses 2+ throughout GI normal to inspection, nondistended, normoactive bowel sounds, soft to palpation, non-tender and non-distended Back/Spine normal ROM Extremity normal to inspection, full ROM and no pedal edema Skin no rashes or lesions noted Neuro moves all extremities and no focal motor deficits Speech: speech normal Psych mental status grossly normal Weight / BMI Weight Weight: 101.6 kg Body Mass Index (BMI) 31.3 ABG / Lab / Microbiology Data 12/04/23 06:40 12/04/23 06:40 D/C Instructions Discharge Diet: No restrictions Meaningful Use Info Meaningful Use Meaningful Use Diagnoses (Choose all that apply): None applicable Ischemic Stroke Statin Dosing Therapy Reference: STATIN DOSE THERAPY REFERENCE: * Patients > 75 years receive moderate or high dose statin therapy. * Patients 75 years or YOUNGER should receive HIGH intensity statin dose unless contraindicated. You will be required to document reason for non-treatment if statin daily dose does not meet guidelines. HIGH DOSE STATIN THERAPY DAILY Atorvastatin > than or = to 40 mg Rosuvastatin > than or = to 20 mg Amlodipine + Atorvastatin > than or = to 2.5/40 mg Ezetimibe + Simvastatin 10/80 mg Simvastatin 80mg Discharge Plan Admission Admit Date/Time: 12/03/23 22:48 Primary Reason for Your Visit: opiate withdrawal Attending Provider: Kimo Walters Primary Care Provider: Care Physician,No Primary Consulting Providers: Jay Monson; Devin Hewitt Discharge Orders/Prescriptions Prescriptions: Continued fluoxetine [Prozac] 40 mg capsule 60 mg PO DAILY divalproex [Depakote] 500 mg tablet,delayed release (DR/EC) 1,000 mg PO DAILY gabapentin 300 mg capsule 600 mg PO Q6H buprenorphine HCl 8 mg tablet, sublingual 8 mg sublingual Q12H cyclobenzaprine 10 mg tablet 20 mg PO DAILY Referrals / Follow Up: Care Physician,No Primary [Primary Care Provider] - Disposition Disposition (needs filled in before D/C Order can be placed): Home, Self Care Charges/Coding Visit Charges Inpatient E&M: 83752 Disch Hosp
--- NOTE | 2023-12-08 10:43 | PHA.DC.MR.R ---
Pharmacy [place] Med Reconciliation Pharmacy Service has performed discharge medication reconciliation for this patient. No new medications. The patient's discharge medication list was reviewed for discrepancies and discrepancies were resolved. Medications at Discharge Home Medications buprenorphine HCl 8 mg sublingual tablet 8 mg sublingual Q12H 12/03/23 cyclobenzaprine 10 mg tablet 20 mg PO DAILY 12/03/23 divalproex 500 mg tablet,delayed release (Depakote) 1,000 mg PO DAILY 12/03/23 fluoxetine 40 mg capsule (Prozac) 60 mg PO DAILY 12/03/23 gabapentin 300 mg capsule 600 mg PO Q6H 12/03/23
[2023-12-08] MEDS: hydrOXYzine PAM 25 MG Capsule 50 MG PO (11:21)
[2023-12-08] MEDS: Dicyclomine 10 MG Capsule 20 MG PO (11:34)
[2023-12-08] MEDS: Loperamide 2 MG Capsule PO (11:34)
== END 2023-12-08 12:39 | disposition home or self-care (01) | DRG 773 ==
LOC: ED 22:37 → MS3 23:18
PROVIDERS: Family Medicine; Admitting Provider Internal Medicine; Emergency Provider Emergency Medicine; Visit Provider Hospitalist
DX: F11.23 Opioid dependence with withdrawal (principal); B18.2 Chronic viral hepatitis C; F15.10 Other stimulant abuse, uncomplicated; G40.909 Epilepsy, unspecified, not intractable, without status epilepticus; F32.A Depression, unspecified; F17.290 Nicotine dependence, other tobacco product, uncomplicated; F14.90 Cocaine use, unspecified, uncomplicated; E87.6 Hypokalemia; G47.33 Obstructive sleep apnea (adult) (pediatric); F41.9 Anxiety disorder, unspecified; D64.9 Anemia, unspecified; E66.9 Obesity, unspecified; Z68.30 Body mass index [BMI] 30.0-30.9, adult; Z79.899 Other long term (current) drug therapy
CPT/HCPCS: 36415; 36600; 80053; 80164; 80307; 82077; 82803; 83735; 84100; 84443; 85025; 94002; 94668; 94762; 99283; A4216